=== PATIENT | male | born 1965 | race Caucasian/White ===

== ENCOUNTER 2023-11-02 18:22 | Observation (INO) ==
[2023-11-02] MEDS ORDERED: IOPAMIDOL 100 ML BOTTLE IV ONE (18:23)
[2023-11-02 18:50] LABS: POC INR 1.1 (0.8-1.2)
[2023-11-02 18:58] LABS: Basophils # (Auto) 0.04 K/mcL (0.00-0.30); Basophils % (Auto) 0.6 % (0.0-2.0); Eosinophils # (Auto) 0.13 K/mcL (0.00-0.70); Eosinophils % (Auto) 1.9 % (0.0-7.0); Hematocrit 34.5 % (40.1-51.0); Hemoglobin 11.9 g/dL (13.7-17.5); Mean Cell Volume 91.8 fL (80.0-100.0); Mean Corpuscular HGB Conc 34.5 g/dL (31.0-36.0); Mean Platelet Volume 8.2 fL (8.8-12.5); Monocytes # (Auto) 0.91 K/mcL (0.10-0.90); Monocytes % (Auto) 13.4 % (1.0-12.0); Platelet Count 289 K/mcL (140-440); RBC 3.76 M/mcL (4.63-6.08); Red Cell Distribution Width 12.3 % (11.5-14.5); WBC 6.8 K/mcL (4.5-11.0)
[2023-11-02 19:18] LABS: ALT/SGPT 5 U/L (<40); AST/SGOT 15 U/L (<40); Albumin 3.7 gm/dL (3.2-5.2); Albumin/Globulin Ratio 1.3 (1.0-2.3); Alkaline Phosphatase 81 U/L (39-117); Bilirubin,Total 0.4 mg/dL (0.1-1.0); Blood Urea Nitrogen 8 mg/dL (6-20); Carbon Dioxide 24 mmol/L (22-30); Chloride 94 mmol/L (96-108); Globulin 2.8 gm/dL (2.2-3.7); Glomerular Filtration Rate 128; Glucose 91 mg/dL (70-105)
[2023-11-02 19:19] LABS: Bilirubin,Direct < 0.2 mg/dL (0-0.3)
[2023-11-02] MEDS: ASPIRIN 81 MG TAB.CHEW CHEWED ONE (19:42)
[2023-11-02 20:44] LABS: Appearance,Urine CLEAR (Clear); Bilirubin,Urine Negative (Negative); Color,Urine STRAW; Culture Indicated,Urine No; Glucose,Urine (UA) Negative (Negative); Ketones,Urine Negative (Negative); Leukocyte Esterase,Urine Negative /uL (Negative); Nitrate,Urine Negative (Negative); Protein,Urine Negative (Negative); Specific Gravity,Urine 1.021 (1.000-1.035); Urine Blood Negative (Negative); Urobilinogen,Urine Negative
[2023-11-02] MEDS ORDERED: ACETAMINOPHEN 325 MG TABLET PO PRN (21:26)
[2023-11-02] MEDS ORDERED: MAGNESIUM SULFATE 2 GM/50 ML BAG IV PRN (21:26)
[2023-11-02] MEDS ORDERED: IPRATROPIUM/ALBUTEROL 3 ML AMPUL.NEB NEB PRN (21:26)
[2023-11-02] MEDS ORDERED: SENNOSIDES 1 TABLET PO PRN (21:26)
[2023-11-02] MEDS ORDERED: POTASSIUM CHLORIDE 20 MEQ TABLET PO PRN ×2 (21:26)
[2023-11-02] MEDS ORDERED: POLYETHYLENE GLYCOL 3350 17 GM PACKET PO PRN (21:26)
[2023-11-02] MEDS ORDERED: POTASSIUM CHLORIDE 40 MEQ in DEXTROSE 5% IN WATER 500 ML IV PRN (21:26)
[2023-11-02 21:49] LABS: HDL Cholesterol 51 mg/dL (>40); LDL Cholesterol,Calculated 37 mg/dL (<100); Non-HDL Cholesterol 45 mg/dL (<130); Triglycerides 41 mg/dL (<150)
[2023-11-02] MEDS: ATORVASTATIN 40 MG TABLET PO SCH (21:55)
[2023-11-02] MEDS: 0.9 % SODIUM CHLORIDE 1,000 ML IV SCH (21:55)
[2023-11-02] MEDS: SODIUM CHLORIDE 1 GM TABLET PO SCH (21:55)
[2023-11-02] MEDS: DOCUSATE SODIUM 100 MG CAPSULE PO SCH (21:55)
[2023-11-02] MEDS: 0.9 % SODIUM CHLORIDE 10 ML SYRINGE IV SCH (22:01)
[2023-11-03 06:52] LABS: ALT/SGPT < 5 U/L (<40); AST/SGOT 16 U/L (<40); Albumin 3.6 gm/dL (3.2-5.2); Albumin/Globulin Ratio 1.3 (1.0-2.3); Alkaline Phosphatase 80 U/L (39-117); Bilirubin,Direct < 0.2 mg/dL (0-0.3); Bilirubin,Total 0.5 mg/dL (0.1-1.0); Blood Urea Nitrogen 6 mg/dL (6-20); Calcium 8.6 mg/dL (8.6-10.4); Carbon Dioxide 22 mmol/L (22-30); Chloride 98 mmol/L (96-108); Globulin 2.7 gm/dL (2.2-3.7); Glomerular Filtration Rate 144; Glucose 89 mg/dL (70-105); Lactate Dehydrogenase 132 U/L (135-225); Phosphorous 3.4 mg/dL (2.5-4.5); Triglycerides 44 mg/dL (<150); Uric Acid 3.1 mg/dL (2.5-8.0)
[2023-11-03] MEDS: PANTOPRAZOLE 40 MG TABLET PO SCH (08:20)
[2023-11-03] MEDS: ASPIRIN 81 MG TAB.CHEW CHEWED SCH (09:08)
[2023-11-03] MEDS: CITALOPRAM 20 MG TABLET PO SCH (09:08)
[2023-11-03] MEDS: ENOXAPARIN 40 MG/0.4 ML SYRINGE SQ SCH (09:09)
[2023-11-03] MEDS: Alfuzosin 10 mg tablet extended release 24 hr PO SCH (09:09)
[2023-11-03] MEDS: OXYBUTYNIN CHLORIDE 5 MG TAB.XL.24H PO SCH (09:09)
[2023-11-03] MEDS: SODIUM CHLORIDE 1 GM TABLET PO SCH (09:09)
[2023-11-03] MEDS: ONDANSETRON 4 MG/2 ML VIAL IV PRN (10:36)
[2023-11-04 06:19] LABS: Blood Urea Nitrogen 8 mg/dL (6-20); Calcium 8.8 mg/dL (8.6-10.4); Carbon Dioxide 22 mmol/L (22-30); Chloride 97 mmol/L (96-108); Glomerular Filtration Rate 144; Glucose 99 mg/dL (70-105)
== END 2023-11-04 13:22 | disposition home or self-care (01) ==
LOC: ED 18:22 → ICU 18:22
PROVIDERS: ADMIT Internal Medicine; ATTEND Internal Medicine